=== PATIENT | male | born 1970 | race Caucasian/White ===

== ENCOUNTER 2021-07-13 10:28 | Emergency (ER) | payer SELFPAY ==
[~2021-07-13] VITALS: Ht 190.5 cm; Wt 113.3 kg
[2021-07-13 11:09] LABS: BASOPHILS % (AUTO) 0 % (0-10); EOSINOPHILS % (AUTO) 0 % (0-10); HEMATOCRIT 43 % (40-54); HEMOGLOBIN 14.2 g/dL (13.3-17.7); LYMPHOCYTES # (AUTO) 0.5 10^3/uL (1.0-4.0); LYMPHOCYTES % (AUTO) 8 % (12-44); MEAN CORPUSCULAR HEMOGLOBIN 30 pg (25-34); MEAN CORPUSCULAR HGB CONC 33 g/dL (32-36); MEAN CORPUSCULAR VOLUME 91 fL (80-99); MEAN PLATELET VOLUME 10.4 fL (9.0-12.2); MONOCYTES # (AUTO) 0.3 10^3/uL (0.0-1.0); MONOCYTES % (AUTO) 5 % (0-12); NEUTROPHILS # (AUTO) 5.7 10^3/uL (1.8-7.8); NEUTROPHILS % (AUTO) 86 % (42-75); PLATELET COUNT 157 10^3/uL (130-400); WHITE BLOOD COUNT 6.6 10^3/uL (4.3-11.0)
[2021-07-13] MEDS ORDERED: LACTATED RINGERS 1,000 ML IV ONE (11:09)
[2021-07-13] MEDS ORDERED: ACETAMINOPHEN 500 MG TAB (TYLENOL) PO ONE (11:15)
[2021-07-13] MEDS ORDERED: IBUPROFEN TABLET 200 MG TAB PO ONE (11:15)
[2021-07-13 11:19] LABS: ALBUMIN 3.8 GM/DL (3.2-4.5)
[2021-07-13 11:20] LABS: POTASSIUM 4.1 MMOL/L (3.6-5.0)
[2021-07-13 11:21] LABS: CALCIUM 9.1 MG/DL (8.5-10.1)
[2021-07-13 11:22] LABS: TOTAL PROTEIN 7.1 GM/DL (6.4-8.2)
--- NOTE | 2021-07-13 11:31 | ED General ---
General Chief Complaint: COVID19 Suspect/Confirmed Stated Complaint: HEADACHE,FATIGUE,COVID+ Source of Information: Patient Exam Limitations: No Limitations (CATA BLACKWELL APRN) History of Present Illness Date Seen by Provider: Jul 13, 2021 Time Seen by Provider: 11:29 Initial Comments To ER with headache fatigue and Covid positive. Tested positive on 07/09/2021. He became symptomatic 6 days prior to that. Unvaccinated against Covid. He is a local chiropractor. He has been trying to arrange Regeneron infusion but has not had any luck getting that set up. He is on day 10 currently. Timing/Duration: 1-2 Days Severity: Moderate Associated Systoms: Denies Symptoms (CATA BLACKWELL APRN) Allergies and Home Medications Allergies Coded Allergies: No Known Drug Allergies (Unverified , 07/13/21) Patient Home Medication List Home Medication List Reviewed: Yes (CATA BLCAKWELL APRN) Review of Systems Review of Systems Constitutional: see HPI, malaise, weakness EENTM: see HPI Respiratory: see HPI Cardiovascular: no symptoms reported Genitourinary: no symptoms reported Musculoskeletal: no symptoms reported Skin: no symptoms reported Psychiatric/Neurological: No Symptoms Reported Hematologic/Lymphatic: No Symptoms Reported Immunological/Allergic: no symptoms reported (CATA BLACKWELL APRN) Physical Exam Vital Signs Vital Signs - First Documented 07/13/21 10:35 Temp 39.1 Pulse 94 Resp 22 B/P (MAP) 116/88 (97) Pulse Ox 92 O2 Delivery Room Air (KEELY RILEY MD) Vital Signs Capillary Refill : (CATA BLACKWELL APRN) Height, Weight, BMI Height: '" Weight: lbs. oz. kg; BMI Method: General Appearance: No Apparent Distress, WD/WN Eyes: Bilateral Eye Normal Inspection, Bilateral Eye PERRL, Bilateral Eye EOMI Neck: Full Range of Motion, Normal Inspection Respiratory: Normal Breath Sounds, No Accessory Muscle Use, No Respiratory Distress Cardiovascular: Regular Rate, Rhythm, Normal Peripheral Pulses Gastrointestinal: Normal Bowel Sounds, Non Tender, Soft Extremity: Normal Capillary Refill, Normal Inspection Neurologic/Psychiatric: Alert, Oriented x3 Skin: Normal Color, Warm/Dry (CATA BLACKWELL APRN) Progress/Results/Core Measures Suspected Sepsis SIRS Temperature: Pulse: Respiratory Rate: Laboratory Tests 07/13/21 10:50: White Blood Count 6.6 Blood Pressure / Mean: Laboratory Tests 07/13/21 10:50: Creatinine 1.00, Platelet Count 157, Total Bilirubin 1.0 (CATA BLACKWELL APRN) Results/Orders Lab Results Laboratory Tests Test 07/13/21 10:50 Range/Units White Blood Count 6.6 4.3-11.0 10^3/uL Red Blood Count 4.67 4.30-5.52 10^6/uL Hemoglobin 14.2 13.3-17.7 g/dL Hematocrit 43 40-54 % Mean Corpuscular Volume 91 80-99 fL Mean Corpuscular Hemoglobin 30 25-34 pg Mean Corpuscular Hemoglobin Concent 33 32-36 g/dL Red Cell Distribution Width 12.5 10.0-14.5 % Platelet Count 157 130-400 10^3/uL Mean Platelet Volume 10.4 9.0-12.2 fL Immature Granulocyte % (Auto) 1 % Neutrophils (%) (Auto) 86 H 42-75 % Lymphocytes (%) (Auto) 8 L 12-44 % Monocytes (%) (Auto) 5 0-12 % Eosinophils (%) (Auto) 0 0-10 % Basophils (%) (Auto) 0 0-10 % Neutrophils # (Auto) 5.7 1.8-7.8 10^3/uL Lymphocytes # (Auto) 0.5 L 1.0-4.0 10^3/uL Monocytes # (Auto) 0.3 0.0-1.0 10^3/uL Eosinophils # (Auto) 0.0 0.0-0.3 10^3/uL Basophils # (Auto) 0.0 0.0-0.1 10^3/uL Immature Granulocyte # (Auto) 0.1 0.0-0.1 10^3/uL D-Dimer 1.79 H 0.00-0.49 UG/ML Sodium Level 135 135-145 MMOL/L Potassium Level 4.1 3.6-5.0 MMOL/L Chloride Level 101 98-107 MMOL/L Carbon Dioxide Level 22 21-32 MMOL/L Anion Gap 12 5-14 MMOL/L Blood Urea Nitrogen 12 7-18 MG/DL Creatinine 1.00 0.60-1.30 MG/DL Estimat Glomerular Filtration Rate 80 BUN/Creatinine Ratio 12 Glucose Level 111 H 70-105 MG/DL Calcium Level 9.1 8.5-10.1 MG/DL Corrected Calcium 9.3 8.5-10.1 MG/DL Total Bilirubin 1.0 0.1-1.0 MG/DL Aspartate Amino Transf (AST/SGOT) 32 5-34 U/L Alanine Aminotransferase (ALT/SGPT) 16 0-55 U/L Alkaline Phosphatase 52 40-136 U/L C-Reactive Protein High Sensitivity 7.36 H 0.00-0.50 MG/DL Total Protein 7.1 6.4-8.2 GM/DL Albumin 3.8 3.2-4.5 GM/DL (KEELY RILEY MD) Vital Signs/I&O 07/13/21 07/13/21 07/13/21 07/13/21 10:35 10:35 11:13 14:45 Temp 39.1 39.1 Pulse 94 78 Resp 22 20 B/P (MAP) 116/88 (97) 119/79 Pulse Ox 92 91 O2 Delivery Room Air Nasal Cannula Room Air (KEELY RILEY MD) Vital Signs/I&O Capillary Refill : (CATA BLACKWELL APRN) Departure Communication (Admissions) Family Conversation I discussed with him the elevated D-dimer and the recommendation to get a CT angiogram of the chest. He states he does not have insurance and is not particularly concerned about pulmonary embolism. Discussed with him that the elevated D-dimer could simply represent the inflammatory changes of Covid or alternatively could represent a pulmonary embolism. He would like to forego CT imaging of the chest at this time. We do have Regeneron here and will be infusing that now. 1141-Sats 95% room air (CATA BLACKWELL APRN) Impression Primary Impression: COVID-19 Disposition: 01 HOME, SELF-CARE Condition: Stable Departure-Patient Inst. Decision time for Depature: 11:41 (CATA BLACKWELL APRN) Referrals: NO,LOCAL PHYSICIAN (PCP/Family) Primary Care Physician Patient Instructions: COVID-19 (DC) Add. Discharge Instructions: All discharge instructions reviewed with patient and/or family. Voiced understanding. ATTENDING PHYSICIAN NOTE: I was physically present as attending physician in the emergency department during the care of this patient, but I was not directly involved in the decision making or delivery of care for this patient. (KEELY RILEY MD) CATA BLACKWELL APRN Jul 13, 2021 11:31 KEELY RILEY MD Jul 15, 2021 14:22
[2021-07-13] MEDS ORDERED: IOHEXOL 350 MG/ML 100 ML (OMNIPAQUE 350) VIAL IV ONE (11:45)
[2021-07-13] MEDS ORDERED: NS 100 ML (IVPB) BAG IV ONE (11:45)
[2021-07-13] MEDS ORDERED: HOLD METFORMIN - RECEIVED CONTRAST 20 ML VIAL IV SCH (11:45)
[2021-07-13] MEDS ORDERED: EPINEPHrine INJECTION 1 MG/ML AMP IM PRN (12:00)
[2021-07-13] MEDS ORDERED: CASIRIVIMAB/IMDEVIMAB 1,200 MG in NS (IVPB) 250 ML IV NR (12:00)
[2021-07-13] MEDS ORDERED: diphenhydrAMINE 50 MG/ML INJ (BENADRYL) IV PRN (12:00)
--- NOTE | 2021-07-13 12:02 | Diagnostic Imaging Report ---
EXAMINATION: Chest radiograph, portable AP view. DATE: 07/13/2021 12:02 PM INDICATION: 50-year-old male, headache and fatigue. COVID positive. COMPARISON: None. FINDINGS: There is multifocal bilateral lung consolidation with a mid and lower lung zone predominance. Heart size and mediastinal contours are unremarkable. There is no identified pneumothorax. There is no large pleural effusion. IMPRESSION: 1. Multifocal bilateral lung consolidation of the mid and lower lung zone predominance. This may relate to COVID 19 positive status and multifocal pneumonia/pneumonitis. Report was faxed to [facility] by becky at 12:02PM. Dictated by: Dictated on workstation # [id number]
[2021-07-13 14:45] VITALS: BP 119/79
== END 2021-07-13 14:45 | disposition home or self-care (01) ==
LOC: EDUNIT# 10:28 → ER 10:31
DX: U07.1 COVID-19 (principal)
CPT/HCPCS: 36415; 71045; 80053; 85025; 85379; 86141